=== PATIENT | female | born 1940 | race African-American/Black ===

== ENCOUNTER 2019-03-19 18:42 | Inpatient (IN) | payer MEDICARE, MEDICAID ==
[~2019-03-19] VITALS: Ht 160 cm; Wt 75.4 kg
[2019-03-19] MEDS ORDERED: SODIUM CHLORIDE 0.9% 1,000 ML IV ONE (20:10)
[2019-03-19] MEDS ORDERED: ONDANSETRON HCL 4MG/2ML INJ IV STA (20:10)
[2019-03-19 20:43] LABS: HEMATOCRIT. 31.8 % (36.0-48.0); HEMOGLOBIN. 10.3 g/dL (12.0-16.0); MEAN CORPUSCULAR HEMOGLOBIN 27.9 pg (28.0-32.0); MEAN CORPUSCULAR VOLUME 86.5 fL (81.0-99.0); MEAN PLATELET VOLUME 7.1 fl (7.4-10.4); PLATELET 398 x1000/uL (130-400); RED BLOOD CELL COUNT 3.68 mill/uL (4.2-5.4); RED CELL DISTRIBUTION WIDTH 17.3 % (11.6-14.6)
[2019-03-19] MEDS ORDERED: CEFTRIAXONE 1 G PREMIX 50 ML IV ONE (20:45)
[2019-03-19] MEDS ORDERED: SODIUM CHLORIDE 0.9% 1000ML BAG (SEPSIS BOLUS) IV ONE (20:45)
[2019-03-19 20:49] LABS: CHLORIDE 91 mEq/L (98-107)
[2019-03-19 21:07] LABS: NUCLEATED RED BLOOD CELLS 2 /100 WBC; PLATELET ESTIMATE NORMAL
[2019-03-19] MEDS ORDERED: FUROSEMIDE 20MG/2ML VIAL IVP NR (23:45)
[2019-03-19 23:46] LABS: CLARITY URINE CLOUDY (CLEAR); COLOR URINE YELLOW (YELLOW); KETONES URINE NEGATIVE (NEGATIVE); LEUKOCYTE ESTERASE URINE TRACE (NEGATIVE); NITRITE URINE NEGATIVE (NEGATIVE); OCCULT BLOOD URINE NEGATIVE (NEGATIVE); PROTEIN URINE 1+ (NEGATIVE); SPECIFIC GRAVITY URINE 1.014 (1.005-1.030)
[2019-03-20] VITALS (17 sets, daily range): BP systolic 102–131; BP diastolic 57–84
[2019-03-20] MEDS ORDERED: ASPIRIN 325MG EC TABLET PO NR (00:15)
[2019-03-20] MEDS ORDERED: FUROSEMIDE 40MG/4ML VIAL IV NR (03:00)
[2019-03-20] MEDS ORDERED: DIGOXIN 500MCG/2ML AMP IV NR (03:00)
[2019-03-20] MEDS: DEXT 5%/0.45% NACL 1000ML 1,000 ML IV SCH ×2 (03:36→09:10)
[2019-03-20] MEDS: INSULIN LISPRO 100 UNITS/ML SUBCUT SCH ×5 (06:00→23:51)
[2019-03-20 07:10] LABS: CHLORIDE 94 mEq/L (98-107)
[2019-03-20] MEDS ORDERED: ATOR10TA69 PO (07:27)
[2019-03-20] MEDS ORDERED: OMEP40CA34 PO (07:27)
[2019-03-20] MEDS ORDERED: APIX5TAB PO (07:27)
[2019-03-20] MEDS ORDERED: NAPR-679 PO (07:27)
[2019-03-20] MEDS ORDERED: SITA25TA3 PO (07:27)
[2019-03-20] MEDS ORDERED: VALS40TA11 PO (07:27)
[2019-03-20] MEDS ORDERED: METH2.5T PO (07:27)
[2019-03-20] MEDS ORDERED: HYDR200T35 PO (07:27)
[2019-03-20] MEDS ORDERED: FURO20TA4 PO (07:27)
[2019-03-20 07:32] LABS: DIGOXIN 2.1 ng/mL (0.9-2.0)
[2019-03-20] MEDS ORDERED: DIGOXIN 500MCG/2ML AMP IV SCH (08:15)
[2019-03-20] MEDS: FUROSEMIDE 40MG/4ML VIAL IVP SCH ×2 (08:56→22:19)
[2019-03-20] MEDS ORDERED: POTASSIUM CHLORIDE 20MEQ TABLET SR PO SCH (09:00)
[2019-03-20] MEDS: DIGOXIN 500MCG/2ML AMP IV SCH (16:10)
[2019-03-20] MEDS: METOPROLOL TARTRATE 50MG TABLET PO SCH ×2 (16:59→21:00)
[2019-03-20] MEDS ORDERED: AMIODARONE HCL 900 MG in DEXT 5% WATER 482 ML IV PRN (21:15)
[2019-03-20] MEDS ORDERED: AMIODARONE HCL 150 MG in DEXT 5% WATER 100 ML IV NR (21:30)
[2019-03-20] MEDS: ONDANSETRON HCL 4MG/2ML INJ IV PRN (22:20)
[2019-03-20] MEDS: BLOOD SUGAR DIAGNOSTIC STRIP TEST SCH (23:31)
[2019-03-21] VITALS (12 sets, daily range): BP systolic 101–154; BP diastolic 48–77
[2019-03-21] MEDS ORDERED: DEXTROSE 50% WATER 50ML SYRINGE IV PRN
[2019-03-21 00:04] LABS: T4 FREE 1.64 ng/dL (0.76-1.46)
[2019-03-21] MEDS: APIXABAN 5 MG TABLET PO SCH ×2 (05:29→17:02)
[2019-03-21] MEDS: ONDANSETRON HCL 4MG/2ML INJ IV PRN ×3 (05:29→13:08)
[2019-03-21] MEDS: DIGOXIN 500MCG/2ML AMP IV SCH ×2 (05:30→17:02)
[2019-03-21] MEDS: BLOOD SUGAR DIAGNOSTIC STRIP TEST SCH ×3 (05:35→18:13)
[2019-03-21] MEDS: INSULIN LISPRO 100 UNITS/ML SUBCUT SCH ×3 (05:35→18:00)
[2019-03-21 07:06] LABS: BASOPHILS % 1.6 % (0.0-2.0); EOSINOPHILS % 0.5 % (0.0-5.0); HEMATOCRIT. 33.8 % (36.0-48.0); HEMOGLOBIN. 10.7 g/dL (12.0-16.0); LYMPHOCYTES % 17.6 % (20.0-50.0); MEAN CORPUSCULAR HEMOGLOBIN 27.5 pg (28.0-32.0); MEAN CORPUSCULAR VOLUME 86.5 fL (81.0-99.0); MEAN PLATELET VOLUME 7.5 fl (7.4-10.4); MONOCYTES % 10.3 % (2.0-8.0); PLATELET 391 x1000/uL (130-400); RED CELL DISTRIBUTION WIDTH 17.1 % (11.6-14.6)
[2019-03-21] MEDS: FUROSEMIDE 40MG/4ML VIAL IVP SCH ×2 (08:20→22:55)
[2019-03-21] MEDS: METOPROLOL TARTRATE 50MG TABLET PO SCH ×2 (08:21→22:56)
[2019-03-21 09:20] LABS: DIGOXIN 2.6 ng/mL (0.9-2.0)
[2019-03-21 14:53] LABS: CREATINE KINASE MB FRACTION 2.4 ng/mL (0.5-3.6)
[2019-03-21] MEDS ORDERED: MAGNESIUM SULFATE 1GM/2ML VIAL IM ONE (21:15)
[2019-03-21] MEDS: ALLOPURINOL 100 MG TABLET PO SCH (23:04)
[2019-03-21] MEDS: SODIUM CHLORIDE 0.9% 1,000 ML IV SCH (23:07)
[2019-03-22] VITALS (12 sets, daily range): BP systolic 100–138; BP diastolic 50–74
[2019-03-22] MEDS ORDERED: MAGNESIUM 2 G PREMIX 50 ML IV NR
[2019-03-22] MEDS: BLOOD SUGAR DIAGNOSTIC STRIP TEST SCH ×4 (00:50→16:48)
[2019-03-22] MEDS: INSULIN LISPRO 100 UNITS/ML SUBCUT SCH ×4 (00:55→16:49)
[2019-03-22] MEDS: DIGOXIN 500MCG/2ML AMP IV SCH (06:44)
[2019-03-22] MEDS: APIXABAN 5 MG TABLET PO SCH ×2 (06:44→17:37)
[2019-03-22 07:27] LABS: BASOPHILS % 0.6 % (0.0-2.0); EOSINOPHILS % 0.7 % (0.0-5.0); HEMATOCRIT. 32.8 % (36.0-48.0); HEMOGLOBIN. 10.6 g/dL (12.0-16.0); LYMPHOCYTES % 13.7 % (20.0-50.0); MEAN CORPUSCULAR HEMOGLOBIN 27.9 pg (28.0-32.0); MEAN CORPUSCULAR VOLUME 85.9 fL (81.0-99.0); MEAN PLATELET VOLUME 7.6 fl (7.4-10.4); MONOCYTES % 12.2 % (2.0-8.0); NEUTROPHILS % 72.8 % (40.0-76.0); PLATELET 379 x1000/uL (130-400); RED BLOOD CELL COUNT 3.81 mill/uL (4.2-5.4); RED CELL DISTRIBUTION WIDTH 17.4 % (11.6-14.6)
[2019-03-22] MEDS: FUROSEMIDE 40MG/4ML VIAL IVP SCH ×2 (08:28→20:54)
[2019-03-22] MEDS: DOCUSATE SODIUM 100MG CAPSULE PO PRN (08:29)
[2019-03-22] MEDS: METOPROLOL TARTRATE 50MG TABLET PO SCH ×2 (08:29→20:54)
[2019-03-22] MEDS: ALLOPURINOL 100 MG TABLET PO SCH ×2 (08:29→16:12)
[2019-03-22] MEDS ORDERED: LIDOCAINE HCL 1% 20ML VIAL (Pyxis) INJ ONE (12:10)
[2019-03-22] MEDS: ONDANSETRON HCL 4MG/2ML INJ IV PRN ×2 (16:41→21:52)
[2019-03-22] MEDS: SODIUM CHLORIDE 1000MG TABLET PO SCH (17:29)
[2019-03-22] MEDS: SODIUM CHLORIDE 0.9% 1,000 ML IV SCH (21:51)
[2019-03-22] MEDS: MAGNESIUM/ALUMINUM HYDROXIDE/SIMETHICONE 30ML UDC PO PRN (23:06)
[2019-03-23] VITALS (12 sets, daily range): BP systolic 100–138; BP diastolic 46–63
[2019-03-23] MEDS: BLOOD SUGAR DIAGNOSTIC STRIP TEST SCH ×4 (00:26→17:23)
[2019-03-23] MEDS: INSULIN LISPRO 100 UNITS/ML SUBCUT SCH ×4 (06:00→17:23)
[2019-03-23] MEDS: APIXABAN 5 MG TABLET PO SCH ×3 (06:00→17:23)
[2019-03-23] MEDS: FUROSEMIDE 40MG/4ML VIAL IVP SCH ×2 (08:47→21:42)
[2019-03-23] MEDS: ONDANSETRON HCL 4MG/2ML INJ IV PRN ×2 (08:47→13:09)
[2019-03-23] MEDS: ACETAMINOPHEN 325MG TABLET PO PRN ×2 (08:47→13:09)
[2019-03-23] MEDS: METOPROLOL TARTRATE 50MG TABLET PO SCH ×2 (08:48→21:42)
[2019-03-23] MEDS: ALLOPURINOL 100 MG TABLET PO SCH ×2 (08:48→17:23)
[2019-03-23] MEDS: SODIUM CHLORIDE 1000MG TABLET PO SCH (09:15)
[2019-03-23] MEDS: MAGNESIUM/ALUMINUM HYDROXIDE/SIMETHICONE 30ML UDC PO PRN (11:09)
[2019-03-23] MEDS ORDERED: SODIUM CHLORIDE 3% 500 ML IV ONE ×2 (11:30)
[2019-03-23] MEDS ORDERED: SODIUM CHLORIDE 3% 500 ML IV SCH (13:00)
[2019-03-23] MEDS: SODIUM CHLORIDE 0.9% 1,000 ML IV SCH (21:26)
[2019-03-23] MEDS ORDERED: SODIUM CHLORIDE 3% 500ML IV SOLN IV ONE (23:45)
[2019-03-24] VITALS (13 sets, daily range): BP systolic 114–147; BP diastolic 49–70
[2019-03-24] MEDS: BLOOD SUGAR DIAGNOSTIC STRIP TEST SCH ×5 (00:14→23:40)
[2019-03-24] MEDS ORDERED: SODIUM CHLORIDE 3% 500 ML IV NR (05:00)
[2019-03-24] MEDS: INSULIN LISPRO 100 UNITS/ML SUBCUT SCH ×5 (06:00→23:41)
[2019-03-24 06:10] LABS: BASOPHILS % 0.3 % (0.0-2.0); EOSINOPHILS % 0.4 % (0.0-5.0); HEMATOCRIT. 35.6 % (36.0-48.0); HEMOGLOBIN. 11.6 g/dL (12.0-16.0); LYMPHOCYTES % 15.9 % (20.0-50.0); MEAN CORPUSCULAR VOLUME 86.3 fL (81.0-99.0); MEAN PLATELET VOLUME 7.2 fl (7.4-10.4); MONOCYTES % 12.5 % (2.0-8.0); NEUTROPHILS % 70.9 % (40.0-76.0); PLATELET 361 x1000/uL (130-400); RED BLOOD CELL COUNT 4.13 mill/uL (4.2-5.4); RED CELL DISTRIBUTION WIDTH 18.1 % (11.6-14.6)
[2019-03-24] MEDS: APIXABAN 5 MG TABLET PO SCH ×2 (06:32→18:15)
[2019-03-24] MEDS: SODIUM CHLORIDE 1000MG TABLET PO SCH (09:09)
[2019-03-24] MEDS: ALLOPURINOL 100 MG TABLET PO SCH ×2 (09:11→18:15)
[2019-03-24] MEDS: FUROSEMIDE 40MG/4ML VIAL IVP SCH ×2 (09:13→21:17)
[2019-03-24] MEDS: METOPROLOL TARTRATE 50MG TABLET PO SCH ×2 (09:18→21:18)
[2019-03-24 09:59] LABS: BG BASE EXCESS 0.1 mmol/L (-2.0-2.0); BG CARBOXYHEMOGLOBIN 1.2 % (0.5-1.5); BG DEOXYHEMOGLOBIN 9.6 % (0.0-5.0); BG FRACTION INSPIRED OXYGEN 21; BG HCO3 ACT 26.9 mmol/L (22.0-26.0); BG METHEMOGLOBIN 0.2 % (0.0-1.5); BG OXYGEN SATURATION 90.3 % (92.0-98.5); BG PCO2 52.8 mmHg (35.0-45.0); BG PH 7.325 (7.350-7.450); BG PO2 64.6 mmHg (75.0-100.0); BG SAMPLE SITE RIGHT BRACHIAL; BG TOTAL HEMOGLOBIN 12.8 g/dL (12.0-18.0); BG VENT MODE ROOM AIR
[2019-03-24] MEDS: IPRATROPIUM/ALBUTEROL 0.5-3(2.5)MG/3ML NEB HHN SCH (20:35)
[2019-03-24] MEDS ORDERED: SODIUM CHLORIDE 0.9% 1,000 ML IV SCH (21:00)
[2019-03-24] MEDS: SODIUM CHLORIDE 0.45% 1,000 ML IV SCH (22:52)
[2019-03-25] VITALS (14 sets, daily range): BP systolic 122–148; BP diastolic 52–78
[2019-03-25] MEDS: IPRATROPIUM/ALBUTEROL 0.5-3(2.5)MG/3ML NEB HHN SCH ×4 (01:01→20:56)
[2019-03-25] MEDS: INSULIN LISPRO 100 UNITS/ML SUBCUT SCH ×3 (06:00→17:17)
[2019-03-25] MEDS: BLOOD SUGAR DIAGNOSTIC STRIP TEST SCH ×3 (06:35→17:10)
[2019-03-25] MEDS: APIXABAN 5 MG TABLET PO SCH ×2 (06:36→17:17)
[2019-03-25 06:37] LABS: BASOPHILS % 0.1 % (0.0-2.0); EOSINOPHILS % 1.3 % (0.0-5.0); HEMATOCRIT. 39.6 % (36.0-48.0); HEMOGLOBIN. 12.5 g/dL (12.0-16.0); LYMPHOCYTES % 10.9 % (20.0-50.0); MEAN CORPUSCULAR HEMOGLOBIN 27.8 pg (28.0-32.0); MEAN CORPUSCULAR VOLUME 88.1 fL (81.0-99.0); MEAN PLATELET VOLUME 7.7 fl (7.4-10.4); MONOCYTES % 14.7 % (2.0-8.0); PLATELET 292 x1000/uL (130-400); RED CELL DISTRIBUTION WIDTH 17.7 % (11.6-14.6)
[2019-03-25 07:33] LABS: BG BASE EXCESS 1.1 mmol/L (-2.0-2.0); BG CARBOXYHEMOGLOBIN 0.9 % (0.5-1.5); BG METHEMOGLOBIN 0.3 % (0.0-1.5); BG OXYGEN SATURATION 94.9 % (92.0-98.5); BG OXYHEMOGLOBIN 93.8 % (94.0-97.0); BG PCO2 54.8 mmHg (35.0-45.0); BG PH 7.327 (7.350-7.450); BG PO2 81.5 mmHg (75.0-100.0); BG SAMPLE SITE RIGHT BRACHIAL; BG TOTAL HEMOGLOBIN 12.9 g/dL (12.0-18.0); BG VENT MODE NASAL CANNULA
[2019-03-25] MEDS: METOPROLOL TARTRATE 50MG TABLET PO SCH ×2 (09:51→21:23)
[2019-03-25] MEDS: FUROSEMIDE 40MG/4ML VIAL IVP SCH ×2 (09:51→21:24)
[2019-03-25] MEDS: ALLOPURINOL 100 MG TABLET PO SCH ×2 (09:51→17:17)
[2019-03-25] MEDS ORDERED: METHYLPREDNISOLONE SOD SUCC 40 MG/ML VIAL IV NR (17:00)
[2019-03-25] MEDS: SODIUM CHLORIDE 0.45% 1,000 ML IV SCH (20:21)
[2019-03-26] VITALS (13 sets, daily range): BP systolic 117–155; BP diastolic 52–78
[2019-03-26] MEDS: BLOOD SUGAR DIAGNOSTIC STRIP TEST SCH ×3 (00:15→12:07)
[2019-03-26] MEDS: IPRATROPIUM/ALBUTEROL 0.5-3(2.5)MG/3ML NEB HHN SCH ×3 (02:00→13:53)
[2019-03-26] MEDS: APIXABAN 5 MG TABLET PO SCH (05:45)
[2019-03-26] MEDS: DOCUSATE SODIUM 100MG CAPSULE PO PRN (05:45)
[2019-03-26 06:57] LABS: BASOPHILS % 0.1 % (0.0-2.0); EOSINOPHILS % 0.1 % (0.0-5.0); HEMATOCRIT. 43.4 % (36.0-48.0); HEMOGLOBIN. 13.2 g/dL (12.0-16.0); LYMPHOCYTES % 11.6 % (20.0-50.0); MEAN CORPUSCULAR HEMOGLOBIN 27.1 pg (28.0-32.0); MEAN PLATELET VOLUME 7.5 fl (7.4-10.4); MONOCYTES % 5.3 % (2.0-8.0); NEUTROPHILS % 82.9 % (40.0-76.0); PLATELET 299 x1000/uL (130-400); RED BLOOD CELL COUNT 4.87 mill/uL (4.2-5.4); RED CELL DISTRIBUTION WIDTH 18.3 % (11.6-14.6)
[2019-03-26] MEDS ORDERED: METHYLPREDNISOLONE SOD SUCC 40 MG/ML VIAL IV SCH (09:00)
[2019-03-26] MEDS: FUROSEMIDE 40MG/4ML VIAL IVP SCH (09:05)
[2019-03-26] MEDS: METOPROLOL TARTRATE 50MG TABLET PO SCH (09:05)
[2019-03-26] MEDS: ALLOPURINOL 100 MG TABLET PO SCH (09:05)
[2019-03-26] MEDS: INSULIN LISPRO 100 UNITS/ML SUBCUT SCH ×3 (09:06→12:00)
[2019-03-26] MEDS: SODIUM CHLORIDE 0.45% 1,000 ML IV SCH (10:21)
== END 2019-03-26 16:51 | DRG 871 ==
LOC: ER 18:42 → 3WST 23:58 → EDBEDREQTM 03-20 00:14 → EDBEDREQ 03-20 00:14 → ENRESERV 03-20 02:53
PROVIDERS: ADMIT Internal Medicine Rheumatology; ATTEND Internal Medicine Rheumatology
PROC: B54MZZA Ultrasonography of Right Upper Extremity Veins, Guidance (ICD-10-PCS; principal; 2019-03-22)
PROC: 02H633Z Insertion of Infusion Device into Right Atrium, Percutaneous Approach (ICD-10-PCS; 2019-03-22)
DX: A41.9 Sepsis, unspecified organism (principal); E43 Unspecified severe protein-calorie malnutrition; J96.20 Acute and chronic respiratory failure, unspecified whether with hypoxia or hypercapnia; J18.9 Pneumonia, unspecified organism; E87.1 Hypo-osmolality and hyponatremia; I50.32 Chronic diastolic (congestive) heart failure; E87.2 Acidosis; I48.92 Unspecified atrial flutter; N17.9 Acute kidney failure, unspecified; I48.0 Paroxysmal atrial fibrillation; I11.0 Hypertensive heart disease with heart failure; M06.9 Rheumatoid arthritis, unspecified; N18.3 Chronic kidney disease, stage 3 (moderate); E78.5 Hyperlipidemia, unspecified; E87.6 Hypokalemia; D64.9 Anemia, unspecified; E11.51 Type 2 diabetes mellitus with diabetic peripheral angiopathy without gangrene; Z96.659 Presence of unspecified artificial knee joint; Z96.653 Presence of artificial knee joint, bilateral; R26.9 Unspecified abnormalities of gait and mobility; E78.00 Pure hypercholesterolemia, unspecified; E87.5 Hyperkalemia; I65.29 Occlusion and stenosis of unspecified carotid artery; T46.0X5A Adverse effect of cardiac-stimulant glycosides and drugs of similar action, initial encounter; Y92.89 Other specified places as the place of occurrence of the external cause; Z82.3 Family history of stroke; Z82.49 Family history of ischemic heart disease and other diseases of the circulatory system; Z79.01 Long term (current) use of anticoagulants; Z79.899 Other long term (current) drug therapy; Z88.1 Allergy status to other antibiotic agents; Z88.8 Allergy status to other drugs, medicaments and biological substances; Z82.61 Family history of arthritis; Z68.29 Body mass index [BMI] 29.0-29.9, adult
CPT/HCPCS: 36415; 36569; 36600; 71045; 76937; 80048; 80051; 80162; 82310; 82375; 82550; 82553; 82805; 82962; 83036; 83605; 83735; 83880; 83930; 83935; 84133; 84145; 84300; 84439; 84443; 84484; 84550; 92523; 92610; 93005; 93306; 94640; 96365; 96375; 97110; 97140; 97162; 97166; 97530; 97535; 99291; C1725; C1893; J0282; J0696; J1160; J1815; J1940; J2405; J2920; J3475; J3490; J7030; J7060; J7620

== ENCOUNTER 2019-03-26 17:00 | Inpatient (IN) | payer MEDICARE, MEDICAID ==
[~2019-03-26] VITALS: Ht 160 cm; Wt 75.3 kg
[~2019-03-26 17:00] MED LIST: APIX5TAB PO; ATOR10TA69 PO; FURO20TA4 PO; HYDR200T35 PO; METH2.5T PO; NAPR-679 PO; OMEP40CA34 PO; SITA25TA3 PO; VALS40TA11 PO
[2019-03-26] MEDS ORDERED: ONDANSETRON HCL 4MG TABLET PO PRN (18:15)
[2019-03-26] MEDS ORDERED: DEXTROSE 50% WATER 50ML SYRINGE IV PRN ×2 (18:15→19:15)
[2019-03-26 20:00] VITALS: BP 144/63
[2019-03-26] MEDS: METOPROLOL TARTRATE 50MG TABLET PO SCH (21:00)
[2019-03-26] MEDS ORDERED: BLOOD SUGAR DIAGNOSTIC STRIP TEST SCH (21:00)
[2019-03-26] MEDS: BLOOD SUGAR DIAGNOSTIC STRIP TEST SCH (21:00)
[2019-03-26] MEDS ORDERED: INSULIN LISPRO 100 UNITS/ML SUBCUT SCH (21:00)
[2019-03-26] MEDS ORDERED: SODIUM CHLORIDE 0.45% 1,000 ML IV SCH (22:00)
[2019-03-26] MEDS: POTASSIUM CHLORIDE 20MEQ TABLET SR PO SCH (23:08)
[2019-03-26] MEDS: APIXABAN 5 MG TABLET PO SCH (23:08)
[2019-03-26] MEDS: ACETAMINOPHEN 325MG TABLET PO PRN (23:19)
[2019-03-26] MEDS: INSULIN LISPRO 100 UNITS/ML SUBCUT SCH (23:52)
[2019-03-27] MEDS: ACETAMINOPHEN 325MG TABLET PO PRN (00:19)
[2019-03-27] MEDS: IPRATROPIUM/ALBUTEROL 0.5-3(2.5)MG/3ML NEB HHN SCH ×4 (04:38→21:01)
[2019-03-27] MEDS: INSULIN LISPRO 100 UNITS/ML SUBCUT SCH ×4 (06:46→21:30)
[2019-03-27 06:48] LABS: BASOPHILS % 0.6 % (0.0-2.0); HEMOGLOBIN. 10.9 g/dL (12.0-16.0); LYMPHOCYTES % 9.8 % (20.0-50.0); MEAN CORPUSCULAR HEMOGLOBIN 27.7 pg (28.0-32.0); MEAN CORPUSCULAR VOLUME 86.6 fL (81.0-99.0); MEAN PLATELET VOLUME 7.5 fl (7.4-10.4); MONOCYTES % 7.6 % (2.0-8.0); PLATELET 279 x1000/uL (130-400); RED BLOOD CELL COUNT 3.93 mill/uL (4.2-5.4); RED CELL DISTRIBUTION WIDTH 18.2 % (11.6-14.6)
[2019-03-27] MEDS: BLOOD SUGAR DIAGNOSTIC STRIP TEST SCH ×4 (06:53→21:31)
[2019-03-27] MEDS ORDERED: INSULIN LISPRO 100 UNITS/ML SUBCUT SCH (07:00)
[2019-03-27 07:22] LABS: CHLORIDE 95 mEq/L (98-107)
[2019-03-27 07:42] LABS: T4 FREE 1.13 ng/dL (0.76-1.46)
[2019-03-27 08:00] VITALS: BP 137/65
[2019-03-27] MEDS: POTASSIUM CHLORIDE 20MEQ TABLET SR PO SCH (08:41)
[2019-03-27] MEDS: ALLOPURINOL 100 MG TABLET PO SCH ×2 (08:41→16:27)
[2019-03-27] MEDS: PREDNISONE 10MG TABLET PO SCH ×2 (08:41→16:27)
[2019-03-27] MEDS: METOPROLOL TARTRATE 50MG TABLET PO SCH ×2 (08:42→21:22)
[2019-03-27] MEDS: APIXABAN 5 MG TABLET PO SCH ×2 (08:42→21:22)
[2019-03-27] MEDS: DOCUSATE SODIUM 100MG CAPSULE PO SCH ×2 (08:42→16:27)
[2019-03-27] MEDS: FUROSEMIDE 40MG TABLET PO SCH (08:42)
[2019-03-27] MEDS ORDERED: METHYLPREDNISOLONE 4MG TABLET PO SCH (09:00)
[2019-03-27] MEDS: LACTULOSE 20G/30ML UDC PO SCH ×2 (18:01→21:22)
[2019-03-27 20:00] VITALS: BP 137/63
[2019-03-27 20:11] LABS: CLARITY URINE CLEAR (CLEAR); COLOR URINE YELLOW (YELLOW); KETONES URINE NEGATIVE (NEGATIVE); LEUKOCYTE ESTERASE URINE NEGATIVE (NEGATIVE); NITRITE URINE NEGATIVE (NEGATIVE); OCCULT BLOOD URINE NEGATIVE (NEGATIVE); PROTEIN URINE NEGATIVE (NEGATIVE); SPECIFIC GRAVITY URINE 1.009 (1.005-1.030); UROBILINOGEN URINE 0.2 E.U./dL (0.2-1.0)
[2019-03-27] MEDS: POLYETHYLENE GLYCOL 3350 (17GM) 1 DOSE PACK PO SCH (21:22)
[2019-03-28] MEDS: MAGNESIUM/ALUMINUM HYDROXIDE/SIMETHICONE 30ML UDC PO PRN (01:37)
[2019-03-28] MEDS: IPRATROPIUM/ALBUTEROL 0.5-3(2.5)MG/3ML NEB HHN SCH ×4 (02:28→20:55)
[2019-03-28] MEDS: BLOOD SUGAR DIAGNOSTIC STRIP TEST SCH ×4 (06:40→20:36)
[2019-03-28] MEDS: INSULIN LISPRO 100 UNITS/ML SUBCUT SCH ×4 (06:42→22:15)
[2019-03-28 07:47] LABS: BASOPHILS % 0.3 % (0.0-2.0); EOSINOPHILS % 0.1 % (0.0-5.0); HEMATOCRIT. 33.3 % (36.0-48.0); HEMOGLOBIN. 10.6 g/dL (12.0-16.0); LYMPHOCYTES % 10.5 % (20.0-50.0); MEAN CORPUSCULAR HEMOGLOBIN 27.6 pg (28.0-32.0); MEAN CORPUSCULAR VOLUME 86.6 fL (81.0-99.0); MEAN PLATELET VOLUME 7.6 fl (7.4-10.4); NEUTROPHILS % 80.1 % (40.0-76.0); PLATELET 287 x1000/uL (130-400); RED BLOOD CELL COUNT 3.84 mill/uL (4.2-5.4)
[2019-03-28 08:00] VITALS: BP 106/58
[2019-03-28 08:21] LABS: FERRITIN 105 ng/mL (10-291)
[2019-03-28 09:00] LABS: CHLORIDE 94 mEq/L (98-107)
[2019-03-28] MEDS: LACTULOSE 20G/30ML UDC PO SCH ×2 (09:00→12:14)
[2019-03-28] MEDS: DOCUSATE SODIUM 100MG CAPSULE PO SCH ×2 (09:00→16:54)
[2019-03-28] MEDS: METOPROLOL TARTRATE 50MG TABLET PO SCH ×2 (09:00→20:34)
[2019-03-28 09:12] LABS: PHOSPHORUS 3.1 mg/dL (2.5-4.9)
[2019-03-28 09:13] LABS: TOTAL IRON BINDING CAPACITY 335 ug/dL (250-450)
[2019-03-28] MEDS: ALLOPURINOL 100 MG TABLET PO SCH ×2 (09:29→16:54)
[2019-03-28] MEDS: FUROSEMIDE 40MG TABLET PO SCH (09:29)
[2019-03-28] MEDS: PREDNISONE 10MG TABLET PO SCH ×2 (09:29→16:54)
[2019-03-28] MEDS: APIXABAN 5 MG TABLET PO SCH ×2 (09:29→20:33)
[2019-03-28 10:58] LABS: VITAMIN B12 SERUM > 2000.0 pg/mL (211-911)
[2019-03-28 20:00] VITALS: BP 121/46
[2019-03-28] MEDS: POLYETHYLENE GLYCOL 3350 (17GM) 1 DOSE PACK PO SCH (20:34)
[2019-03-29] MEDS: IPRATROPIUM/ALBUTEROL 0.5-3(2.5)MG/3ML NEB HHN SCH ×4 (01:00→20:06)
[2019-03-29] MEDS: BLOOD SUGAR DIAGNOSTIC STRIP TEST SCH ×4 (05:37→20:31)
[2019-03-29] MEDS: GLYBURIDE 2.5MG TABLET PO SCH (06:15)
[2019-03-29] MEDS: INSULIN LISPRO 100 UNITS/ML SUBCUT SCH ×4 (06:17→20:55)
[2019-03-29 07:06] LABS: BASOPHILS % 0.5 % (0.0-2.0); EOSINOPHILS % 0.4 % (0.0-5.0); HEMOGLOBIN. 11.4 g/dL (12.0-16.0); LYMPHOCYTES % 13.9 % (20.0-50.0); MEAN CORPUSCULAR HEMOGLOBIN 27.4 pg (28.0-32.0); MEAN CORPUSCULAR VOLUME 86.3 fL (81.0-99.0); MEAN PLATELET VOLUME 7.7 fl (7.4-10.4); MONOCYTES % 9.4 % (2.0-8.0); NEUTROPHILS % 75.8 % (40.0-76.0); PLATELET 260 x1000/uL (130-400); RED BLOOD CELL COUNT 4.16 mill/uL (4.2-5.4); RED CELL DISTRIBUTION WIDTH 18.1 % (11.6-14.6)
[2019-03-29 07:32] LABS: CHLORIDE 93 mEq/L (98-107)
[2019-03-29 07:41] LABS: CREATINE KINASE 33 IU/L (26-192)
[2019-03-29 08:07] VITALS: BP 132/74
[2019-03-29] MEDS: PREDNISONE 10MG TABLET PO SCH ×2 (08:55→17:14)
[2019-03-29] MEDS: METFORMIN HCL 500MG TABLET PO SCH ×2 (08:55→17:14)
[2019-03-29] MEDS: METOPROLOL TARTRATE 50MG TABLET PO SCH ×2 (08:55→20:30)
[2019-03-29] MEDS: APIXABAN 5 MG TABLET PO SCH ×2 (08:55→20:30)
[2019-03-29] MEDS: DOCUSATE SODIUM 100MG CAPSULE PO SCH ×2 (08:55→17:14)
[2019-03-29] MEDS: ALLOPURINOL 100 MG TABLET PO SCH ×2 (08:55→17:14)
[2019-03-29] MEDS ORDERED: LEVOFLOXACIN 500MG TABLET PO NR (13:15)
[2019-03-29] MEDS ORDERED: NON FORMULARY PATIENT HOME MED XX SCH (17:00)
[2019-03-29 20:00] VITALS: BP 126/64
[2019-03-29] MEDS: POLYETHYLENE GLYCOL 3350 (17GM) 1 DOSE PACK PO SCH (20:30)
[2019-03-29] MEDS ORDERED: ATOR10TA69 MT (21:45)
[2019-03-29] MEDS ORDERED: NAPR-679 MT (21:45)
[2019-03-30 02:18] VITALS: BP 146/90
[2019-03-30] MEDS: MAGNESIUM/ALUMINUM HYDROXIDE/SIMETHICONE 30ML UDC PO PRN (02:18)
[2019-03-30] MEDS: IPRATROPIUM/ALBUTEROL 0.5-3(2.5)MG/3ML NEB HHN SCH ×4 (02:19→19:49)
[2019-03-30 02:45] VITALS: BP 152/70
[2019-03-30 03:32] VITALS: BP 135/76
[2019-03-30] MEDS: BLOOD SUGAR DIAGNOSTIC STRIP TEST SCH ×4 (06:27→21:00)
[2019-03-30] MEDS: GLYBURIDE 2.5MG TABLET PO SCH (06:27)
[2019-03-30] MEDS: INSULIN LISPRO 100 UNITS/ML SUBCUT SCH ×4 (06:35→21:00)
[2019-03-30 07:04] LABS: CHLORIDE 91 mEq/L (98-107)
[2019-03-30 08:08] VITALS: BP 140/77
[2019-03-30] MEDS: METFORMIN HCL 500MG TABLET PO SCH ×2 (08:30→17:00)
[2019-03-30] MEDS: DOCUSATE SODIUM 100MG CAPSULE PO SCH ×2 (08:30→17:00)
[2019-03-30] MEDS: FUROSEMIDE 40MG TABLET PO SCH (08:31)
[2019-03-30] MEDS: PREDNISONE 10MG TABLET PO SCH ×2 (08:31→17:00)
[2019-03-30] MEDS: ALLOPURINOL 100 MG TABLET PO SCH ×2 (08:31→17:00)
[2019-03-30] MEDS: APIXABAN 5 MG TABLET PO SCH ×2 (08:31→22:00)
[2019-03-30] MEDS: METOPROLOL TARTRATE 50MG TABLET PO SCH ×2 (08:31→22:00)
[2019-03-30] MEDS: LEVOFLOXACIN 250MG TABLET PO SCH (10:21)
[2019-03-30] MEDS ORDERED: VISCOUS LIDOCAINE 2% 15 ML UDC PO PRN (17:45)
[2019-03-30 20:00] VITALS: BP 141/70
[2019-03-30] MEDS: POLYETHYLENE GLYCOL 3350 (17GM) 1 DOSE PACK PO SCH (21:00)
[2019-03-30] MEDS: OMEPRAZOLE 20MG CAPSULE EXTENDED RELEASE PO SCH (21:59)
[2019-03-31] MEDS: IPRATROPIUM/ALBUTEROL 0.5-3(2.5)MG/3ML NEB HHN SCH ×3 (01:30→21:28)
[2019-03-31] MEDS: BLOOD SUGAR DIAGNOSTIC STRIP TEST SCH ×4 (06:54→21:00)
[2019-03-31] MEDS: GLYBURIDE 2.5MG TABLET PO SCH (07:18)
[2019-03-31 07:40] LABS: BASOPHILS % 0.4 % (0.0-2.0); EOSINOPHILS % 0.4 % (0.0-5.0); HEMATOCRIT. 31.5 % (36.0-48.0); HEMOGLOBIN. 10.1 g/dL (12.0-16.0); LYMPHOCYTES % 10.3 % (20.0-50.0); MEAN CORPUSCULAR HEMOGLOBIN 27.6 pg (28.0-32.0); MEAN CORPUSCULAR VOLUME 85.6 fL (81.0-99.0); MEAN PLATELET VOLUME 8.1 fl (7.4-10.4); NEUTROPHILS % 79.9 % (40.0-76.0); PLATELET 261 x1000/uL (130-400); RED BLOOD CELL COUNT 3.68 mill/uL (4.2-5.4); RED CELL DISTRIBUTION WIDTH 17.8 % (11.6-14.6)
[2019-03-31 08:12] LABS: CHLORIDE 92 mEq/L (98-107)
[2019-03-31] MEDS: ALLOPURINOL 100 MG TABLET PO SCH ×2 (08:23→16:52)
[2019-03-31] MEDS: APIXABAN 5 MG TABLET PO SCH ×2 (08:23→22:22)
[2019-03-31] MEDS: OMEPRAZOLE 20MG CAPSULE EXTENDED RELEASE PO SCH (08:23)
[2019-03-31] MEDS: PREDNISONE 10MG TABLET PO SCH ×2 (08:23→16:52)
[2019-03-31] MEDS: DOCUSATE SODIUM 100MG CAPSULE PO SCH ×2 (08:23→16:52)
[2019-03-31] MEDS: METFORMIN HCL 500MG TABLET PO SCH ×2 (08:23→16:50)
[2019-03-31] MEDS: METOPROLOL TARTRATE 50MG TABLET PO SCH ×2 (08:24→22:23)
[2019-03-31] MEDS: INSULIN LISPRO 100 UNITS/ML SUBCUT SCH ×4 (08:25→21:00)
[2019-03-31 08:27] VITALS: BP 143/87
[2019-03-31] MEDS: LEVOFLOXACIN 250MG TABLET PO SCH (10:14)
[2019-03-31] MEDS: NYSTATIN 100,000 UNITS/ML 5ML UDC SSW SCH ×2 (11:53→17:00)
[2019-03-31 20:00] VITALS: BP 126/70
[2019-03-31] MEDS: POLYETHYLENE GLYCOL 3350 (17GM) 1 DOSE PACK PO SCH (21:00)
[2019-04-01] VITALS: BP 122/70
[2019-04-01] MEDS: NYSTATIN 100,000 UNITS/ML 5ML UDC SSW SCH ×4 (00:15→17:28)
[2019-04-01] MEDS: IPRATROPIUM/ALBUTEROL 0.5-3(2.5)MG/3ML NEB HHN SCH ×4 (01:14→20:02)
[2019-04-01] MEDS: BLOOD SUGAR DIAGNOSTIC STRIP TEST SCH ×4 (06:42→21:37)
[2019-04-01] MEDS: INSULIN LISPRO 100 UNITS/ML SUBCUT SCH ×4 (06:42→21:00)
[2019-04-01 08:20] VITALS: BP 139/79
[2019-04-01] MEDS: ALLOPURINOL 100 MG TABLET PO SCH ×2 (09:05→17:27)
[2019-04-01] MEDS: METFORMIN HCL 500MG TABLET PO SCH ×2 (09:05→17:27)
[2019-04-01] MEDS: PREDNISONE 10MG TABLET PO SCH ×2 (09:05→17:27)
[2019-04-01] MEDS: FAMOTIDINE 20MG TABLET PO SCH (09:05)
[2019-04-01] MEDS: APIXABAN 5 MG TABLET PO SCH ×2 (09:06→21:38)
[2019-04-01] MEDS: METOPROLOL TARTRATE 50MG TABLET PO SCH ×2 (09:06→21:00)
[2019-04-01] MEDS: DOCUSATE SODIUM 100MG CAPSULE PO SCH ×2 (09:06→17:27)
[2019-04-01] MEDS: FUROSEMIDE 40MG TABLET PO SCH (09:06)
[2019-04-01] MEDS: LEVOFLOXACIN 250MG TABLET PO SCH (11:37)
[2019-04-01 20:00] VITALS: BP 119/90
[2019-04-01] MEDS: POLYETHYLENE GLYCOL 3350 (17GM) 1 DOSE PACK PO SCH (21:00)
[2019-04-02] MEDS: NYSTATIN 100,000 UNITS/ML 5ML UDC SSW SCH ×4 (00:09→18:00)
[2019-04-02] MEDS: IPRATROPIUM/ALBUTEROL 0.5-3(2.5)MG/3ML NEB HHN SCH ×4 (00:23→21:35)
[2019-04-02] MEDS: BLOOD SUGAR DIAGNOSTIC STRIP TEST SCH ×4 (05:44→21:01)
[2019-04-02] MEDS: INSULIN LISPRO 100 UNITS/ML SUBCUT SCH ×4 (06:19→21:33)
[2019-04-02 07:03] LABS: BASOPHILS % 0.1 % (0.0-2.0); EOSINOPHILS % 0.3 % (0.0-5.0); HEMATOCRIT. 33.2 % (36.0-48.0); HEMOGLOBIN. 10.4 g/dL (12.0-16.0); LYMPHOCYTES % 8.8 % (20.0-50.0); MEAN CORPUSCULAR HEMOGLOBIN 26.7 pg (28.0-32.0); MEAN CORPUSCULAR VOLUME 85.7 fL (81.0-99.0); MEAN PLATELET VOLUME 8.4 fl (7.4-10.4); NEUTROPHILS % 82.8 % (40.0-76.0); PLATELET 266 x1000/uL (130-400); RED BLOOD CELL COUNT 3.87 mill/uL (4.2-5.4); RED CELL DISTRIBUTION WIDTH 18.1 % (11.6-14.6)
[2019-04-02 08:13] VITALS: BP 126/81
[2019-04-02 08:31] LABS: CHLORIDE 91 mEq/L (98-107)
[2019-04-02 08:44] LABS: PHOSPHORUS 3.8 mg/dL (2.5-4.9)
[2019-04-02] MEDS: FAMOTIDINE 20MG TABLET PO SCH (09:14)
[2019-04-02] MEDS: DOCUSATE SODIUM 100MG CAPSULE PO SCH ×2 (09:14→17:54)
[2019-04-02] MEDS: PREDNISONE 10MG TABLET PO SCH ×2 (09:14→17:54)
[2019-04-02] MEDS: METOPROLOL TARTRATE 50MG TABLET PO SCH ×2 (09:14→21:01)
[2019-04-02] MEDS: METFORMIN HCL 500MG TABLET PO SCH ×2 (09:14→17:53)
[2019-04-02] MEDS: APIXABAN 5 MG TABLET PO SCH ×2 (09:14→21:01)
[2019-04-02] MEDS: ALLOPURINOL 100 MG TABLET PO SCH ×2 (09:14→17:54)
[2019-04-02] MEDS: LEVOFLOXACIN 250MG TABLET PO SCH (11:41)
[2019-04-02 14:17] LABS: 25-HYDROXY VITAMIN D3 6.4 ng/mL (.)
[2019-04-02] MEDS: ACETAMINOPHEN 325MG TABLET PO PRN (14:42)
[2019-04-02 20:00] VITALS: BP 119/65
[2019-04-02] MEDS: POLYETHYLENE GLYCOL 3350 (17GM) 1 DOSE PACK PO SCH (21:00)
[2019-04-03] MEDS: NYSTATIN 100,000 UNITS/ML 5ML UDC SSW SCH ×5 (00:09→23:06)
[2019-04-03] MEDS: IPRATROPIUM/ALBUTEROL 0.5-3(2.5)MG/3ML NEB HHN SCH ×4 (02:27→21:16)
[2019-04-03] MEDS: BLOOD SUGAR DIAGNOSTIC STRIP TEST SCH ×4 (05:59→21:00)
[2019-04-03 06:00] VITALS: BP 127/65
[2019-04-03] MEDS: INSULIN LISPRO 100 UNITS/ML SUBCUT SCH ×4 (06:39→23:10)
[2019-04-03 07:59] VITALS: BP 116/69
[2019-04-03] MEDS: ALLOPURINOL 100 MG TABLET PO SCH ×2 (09:24→17:38)
[2019-04-03] MEDS: APIXABAN 5 MG TABLET PO SCH ×2 (09:24→22:41)
[2019-04-03] MEDS: PREDNISONE 10MG TABLET PO SCH ×2 (09:25→17:38)
[2019-04-03] MEDS: FAMOTIDINE 20MG TABLET PO SCH (09:25)
[2019-04-03] MEDS: METFORMIN HCL 500MG TABLET PO SCH ×2 (09:25→17:38)
[2019-04-03] MEDS: FUROSEMIDE 40MG TABLET PO SCH (09:25)
[2019-04-03] MEDS: DOCUSATE SODIUM 100MG CAPSULE PO SCH ×2 (09:25→17:38)
[2019-04-03] MEDS: METOPROLOL TARTRATE 50MG TABLET PO SCH ×2 (09:25→21:00)
[2019-04-03] MEDS: LEVOFLOXACIN 250MG TABLET PO SCH (12:33)
[2019-04-03 20:00] VITALS: BP 109/63
[2019-04-03] MEDS: POLYETHYLENE GLYCOL 3350 (17GM) 1 DOSE PACK PO SCH (22:42)
[2019-04-04] MEDS: IPRATROPIUM/ALBUTEROL 0.5-3(2.5)MG/3ML NEB HHN SCH ×4 (02:37→22:37)
[2019-04-04] MEDS: BLOOD SUGAR DIAGNOSTIC STRIP TEST SCH ×4 (06:30→21:20)
[2019-04-04] MEDS: NYSTATIN 100,000 UNITS/ML 5ML UDC SSW SCH ×3 (06:39→17:23)
[2019-04-04] MEDS: ACETAMINOPHEN 325MG TABLET PO PRN (06:40)
[2019-04-04 08:00] VITALS: BP 113/74
[2019-04-04 09:00] VITALS: BP 113/74
[2019-04-04] MEDS: INSULIN LISPRO 100 UNITS/ML SUBCUT SCH ×4 (09:00→21:21)
[2019-04-04] MEDS: METFORMIN HCL 500MG TABLET PO SCH ×2 (09:29→16:37)
[2019-04-04] MEDS: FAMOTIDINE 20MG TABLET PO SCH (09:29)
[2019-04-04] MEDS: ALLOPURINOL 100 MG TABLET PO SCH ×2 (09:29→16:36)
[2019-04-04 09:30] LABS: BG BASE EXCESS 6.8 mmol/L (-2.0-2.0); BG CARBOXYHEMOGLOBIN 0.6 % (0.5-1.5); BG DEOXYHEMOGLOBIN 11.5 % (0.0-5.0); BG FRACTION INSPIRED OXYGEN 21; BG HCO3 ACT 31.1 mmol/L (22.0-26.0); BG METHEMOGLOBIN 0.3 % (0.0-1.5); BG OXYGEN SATURATION 88.4 % (92.0-98.5); BG OXYHEMOGLOBIN 87.6 % (94.0-97.0); BG PCO2 43.3 mmHg (35.0-45.0); BG PH 7.474 (7.350-7.450); BG PO2 53.5 mmHg (75.0-100.0); BG SAMPLE SITE RIGHT BRACHIAL; BG TOTAL HEMOGLOBIN 11.7 g/dL (12.0-18.0); BG VENT MODE ROOM AIR
[2019-04-04] MEDS: METOPROLOL TARTRATE 50MG TABLET PO SCH ×2 (09:30→21:00)
[2019-04-04] MEDS: FUROSEMIDE 40MG TABLET PO SCH (09:30)
[2019-04-04] MEDS: PREDNISONE 10MG TABLET PO SCH ×2 (09:30→16:36)
[2019-04-04] MEDS: DOCUSATE SODIUM 100MG CAPSULE PO SCH ×2 (09:30→16:36)
[2019-04-04] MEDS: APIXABAN 5 MG TABLET PO SCH ×2 (09:30→21:19)
[2019-04-04] MEDS: LEVOFLOXACIN 250MG TABLET PO SCH (11:03)
[2019-04-04] MEDS ORDERED: FUROSEMIDE 40MG/4ML VIAL IVP SCH (13:30)
[2019-04-04 20:00] VITALS: BP 109/67
[2019-04-04] MEDS: POLYETHYLENE GLYCOL 3350 (17GM) 1 DOSE PACK PO SCH (21:00)
[2019-04-05] MEDS: NYSTATIN 100,000 UNITS/ML 5ML UDC SSW SCH ×4 (00:28→17:33)
[2019-04-05] MEDS: IPRATROPIUM/ALBUTEROL 0.5-3(2.5)MG/3ML NEB HHN SCH ×4 (03:28→20:49)
[2019-04-05 06:14] LABS: BASOPHILS % 0.5 % (0.0-2.0); EOSINOPHILS % 0.3 % (0.0-5.0); HEMATOCRIT. 32.9 % (36.0-48.0); HEMOGLOBIN. 10.3 g/dL (12.0-16.0); LYMPHOCYTES % 11.7 % (20.0-50.0); MEAN CORPUSCULAR HEMOGLOBIN 26.9 pg (28.0-32.0); MEAN CORPUSCULAR VOLUME 86.1 fL (81.0-99.0); MEAN PLATELET VOLUME 8.5 fl (7.4-10.4); MONOCYTES % 8.5 % (2.0-8.0); PLATELET 268 x1000/uL (130-400); RED BLOOD CELL COUNT 3.82 mill/uL (4.2-5.4); RED CELL DISTRIBUTION WIDTH 18.3 % (11.6-14.6)
[2019-04-05 06:33] LABS: PHOSPHORUS 3.7 mg/dL (2.5-4.9)
[2019-04-05] MEDS: BLOOD SUGAR DIAGNOSTIC STRIP TEST SCH ×4 (06:39→21:20)
[2019-04-05 08:14] VITALS: BP 116/62
[2019-04-05] MEDS: INSULIN LISPRO 100 UNITS/ML SUBCUT SCH ×4 (09:00→21:27)
[2019-04-05] MEDS: FUROSEMIDE 40MG TABLET PO SCH (09:18)
[2019-04-05] MEDS: ALLOPURINOL 100 MG TABLET PO SCH ×2 (09:18→17:33)
[2019-04-05] MEDS: FAMOTIDINE 20MG TABLET PO SCH (09:18)
[2019-04-05] MEDS: METFORMIN HCL 500MG TABLET PO SCH ×2 (09:19→17:33)
[2019-04-05] MEDS: METOPROLOL TARTRATE 50MG TABLET PO SCH ×2 (09:19→21:20)
[2019-04-05] MEDS: APIXABAN 5 MG TABLET PO SCH ×2 (09:20→21:19)
[2019-04-05] MEDS: PREDNISONE 10MG TABLET PO SCH ×2 (09:20→17:33)
[2019-04-05] MEDS: DOCUSATE SODIUM 100MG CAPSULE PO SCH ×2 (09:20→17:33)
[2019-04-05] MEDS: LEVOFLOXACIN 250MG TABLET PO SCH (11:06)
[2019-04-05] MEDS: ACETAZOLAMIDE 250MG TABLET PO SCH ×2 (16:13→21:19)
[2019-04-05 20:00] VITALS: BP 166/64
[2019-04-05] MEDS: POLYETHYLENE GLYCOL 3350 (17GM) 1 DOSE PACK PO SCH (21:00)
[2019-04-05] MEDS: MAGNESIUM/ALUMINUM HYDROXIDE/SIMETHICONE 30ML UDC PO PRN (21:31)
[2019-04-06] MEDS: NYSTATIN 100,000 UNITS/ML 5ML UDC SSW SCH ×5 (00:02→23:37)
[2019-04-06] MEDS: MAGNESIUM/ALUMINUM HYDROXIDE/SIMETHICONE 30ML UDC PO PRN (05:22)
[2019-04-06] MEDS: ACETAZOLAMIDE 250MG TABLET PO SCH (05:22)
[2019-04-06 06:37] LABS: BASOPHILS % 0.3 % (0.0-2.0); EOSINOPHILS % 0.9 % (0.0-5.0); HEMATOCRIT. 34.1 % (36.0-48.0); HEMOGLOBIN. 10.7 g/dL (12.0-16.0); LYMPHOCYTES % 10.7 % (20.0-50.0); MEAN CORPUSCULAR HEMOGLOBIN 27.2 pg (28.0-32.0); MEAN CORPUSCULAR VOLUME 86.2 fL (81.0-99.0); MEAN PLATELET VOLUME 8.4 fl (7.4-10.4); MONOCYTES % 8.3 % (2.0-8.0); NEUTROPHILS % 79.8 % (40.0-76.0); PLATELET 269 x1000/uL (130-400); RED BLOOD CELL COUNT 3.95 mill/uL (4.2-5.4); RED CELL DISTRIBUTION WIDTH 18.6 % (11.6-14.6)
[2019-04-06] MEDS: BLOOD SUGAR DIAGNOSTIC STRIP TEST SCH ×4 (06:47→21:00)
[2019-04-06] MEDS: INSULIN LISPRO 100 UNITS/ML SUBCUT SCH ×4 (06:50→21:00)
[2019-04-06] MEDS: IPRATROPIUM/ALBUTEROL 0.5-3(2.5)MG/3ML NEB HHN SCH ×4 (07:45→19:57)
[2019-04-06 07:53] LABS: PHOSPHORUS 3.7 mg/dL (2.5-4.9)
[2019-04-06 08:02] VITALS: BP 123/75
[2019-04-06] MEDS: APIXABAN 5 MG TABLET PO SCH ×2 (08:40→22:44)
[2019-04-06] MEDS: FUROSEMIDE 40MG TABLET PO SCH (08:40)
[2019-04-06] MEDS: FAMOTIDINE 20MG TABLET PO SCH (08:40)
[2019-04-06] MEDS: PREDNISONE 10MG TABLET PO SCH ×2 (08:40→16:28)
[2019-04-06] MEDS: METFORMIN HCL 500MG TABLET PO SCH ×2 (08:40→16:28)
[2019-04-06] MEDS: ALLOPURINOL 100 MG TABLET PO SCH ×2 (08:40→16:27)
[2019-04-06] MEDS: DOCUSATE SODIUM 100MG CAPSULE PO SCH ×2 (08:40→16:28)
[2019-04-06] MEDS: METOPROLOL TARTRATE 50MG TABLET PO SCH ×3 (08:48→22:44)
[2019-04-06] MEDS ORDERED: POTASSIUM CHLORIDE 20MEQ TABLET SR PO SCH (10:15)
[2019-04-06] MEDS: LEVOFLOXACIN 250MG TABLET PO SCH (10:22)
[2019-04-06 20:00] VITALS: BP 152/83
[2019-04-06] MEDS: POLYETHYLENE GLYCOL 3350 (17GM) 1 DOSE PACK PO SCH (22:44)
[2019-04-07] MEDS: IPRATROPIUM/ALBUTEROL 0.5-3(2.5)MG/3ML NEB HHN SCH ×4 (00:54→20:11)
[2019-04-07] MEDS: NYSTATIN 100,000 UNITS/ML 5ML UDC SSW SCH ×2 (06:06→12:00)
[2019-04-07 06:37] LABS: BASOPHILS % 0.4 % (0.0-2.0); EOSINOPHILS % 0.3 % (0.0-5.0); HEMATOCRIT. 34.3 % (36.0-48.0); HEMOGLOBIN. 10.8 g/dL (12.0-16.0); LYMPHOCYTES % 8.2 % (20.0-50.0); MEAN CORPUSCULAR HEMOGLOBIN 27.5 pg (28.0-32.0); MEAN CORPUSCULAR VOLUME 86.8 fL (81.0-99.0); MEAN PLATELET VOLUME 8.6 fl (7.4-10.4); MONOCYTES % 6.2 % (2.0-8.0); NEUTROPHILS % 84.9 % (40.0-76.0); PLATELET 256 x1000/uL (130-400); RED BLOOD CELL COUNT 3.95 mill/uL (4.2-5.4)
[2019-04-07] MEDS: INSULIN LISPRO 100 UNITS/ML SUBCUT SCH ×4 (06:38→21:51)
[2019-04-07] MEDS: BLOOD SUGAR DIAGNOSTIC STRIP TEST SCH ×4 (06:38→21:52)
[2019-04-07 08:35] VITALS: BP 105/50
[2019-04-07] MEDS: METOPROLOL TARTRATE 50MG TABLET PO SCH ×2 (09:00→21:00)
[2019-04-07] MEDS: ALLOPURINOL 100 MG TABLET PO SCH ×2 (09:10→17:26)
[2019-04-07] MEDS: DOCUSATE SODIUM 100MG CAPSULE PO SCH ×2 (09:10→17:26)
[2019-04-07] MEDS: APIXABAN 5 MG TABLET PO SCH ×2 (09:10→21:47)
[2019-04-07] MEDS: FUROSEMIDE 40MG TABLET PO SCH (09:10)
[2019-04-07] MEDS: PREDNISONE 10MG TABLET PO SCH ×2 (09:11→17:25)
[2019-04-07] MEDS: FAMOTIDINE 20MG TABLET PO SCH (09:11)
[2019-04-07] MEDS: METFORMIN HCL 500MG TABLET PO SCH ×2 (09:11→17:47)
[2019-04-07 20:00] VITALS: BP 111/71
[2019-04-07] MEDS: POLYETHYLENE GLYCOL 3350 (17GM) 1 DOSE PACK PO SCH (21:47)
[2019-04-07] MEDS: SILDENAFIL CITRATE 20MG TABLET PO SCH (22:00)
[2019-04-08] MEDS ORDERED: NA PHOS,M-B/NA PHOS,DI-BA ENEMA 118ML PR NR (02:00)
[2019-04-08] MEDS: IPRATROPIUM/ALBUTEROL 0.5-3(2.5)MG/3ML NEB HHN SCH ×3 (02:03→14:10)
[2019-04-08] MEDS: BLOOD SUGAR DIAGNOSTIC STRIP TEST SCH ×3 (06:10→16:58)
[2019-04-08] MEDS: SILDENAFIL CITRATE 20MG TABLET PO SCH ×2 (06:18→13:28)
[2019-04-08 06:57] LABS: BASOPHILS % 0.8 % (0.0-2.0); EOSINOPHILS % 0.5 % (0.0-5.0); HEMATOCRIT. 34.4 % (36.0-48.0); HEMOGLOBIN. 10.6 g/dL (12.0-16.0); LYMPHOCYTES % 9.5 % (20.0-50.0); MEAN CORPUSCULAR HEMOGLOBIN 26.8 pg (28.0-32.0); MEAN CORPUSCULAR VOLUME 86.9 fL (81.0-99.0); MEAN PLATELET VOLUME 8.4 fl (7.4-10.4); NEUTROPHILS % 82.2 % (40.0-76.0); PLATELET 212 x1000/uL (130-400); RED BLOOD CELL COUNT 3.96 mill/uL (4.2-5.4); RED CELL DISTRIBUTION WIDTH 18.8 % (11.6-14.6)
[2019-04-08 08:05] VITALS: BP 109/56
[2019-04-08] MEDS: INSULIN LISPRO 100 UNITS/ML SUBCUT SCH ×3 (09:00→16:58)
[2019-04-08] MEDS: APIXABAN 5 MG TABLET PO SCH (09:23)
[2019-04-08] MEDS: DOCUSATE SODIUM 100MG CAPSULE PO SCH ×2 (09:23→16:47)
[2019-04-08] MEDS: METFORMIN HCL 500MG TABLET PO SCH ×2 (09:23→16:47)
[2019-04-08] MEDS: PREDNISONE 10MG TABLET PO SCH ×2 (09:23→16:47)
[2019-04-08] MEDS: FAMOTIDINE 20MG TABLET PO SCH (09:23)
[2019-04-08] MEDS: METOPROLOL TARTRATE 50MG TABLET PO SCH (09:23)
[2019-04-08] MEDS: ALLOPURINOL 100 MG TABLET PO SCH ×2 (09:23→16:47)
[2019-04-08] MEDS: FUROSEMIDE 40MG TABLET PO SCH (09:23)
[2019-04-08] MEDS ORDERED: POTASSIUM CHLORIDE 10MEQ TABLET SR PO SCH (09:45)
[2019-04-08] MEDS: SODIUM CHLORIDE 1000MG TABLET PO SCH ×2 (10:51→16:47)
[2019-04-08 14:02] VITALS: BP 110/70
== END 2019-04-08 18:15 | disposition home health service (06) | DRG 291 ==
PROVIDERS: ADMIT Physical Medicine & Rehabilitation Spinal Cord Injury Medicine; ATTEND Internal Medicine Rheumatology
DX: I13.0 Hypertensive heart and chronic kidney disease with heart failure and stage 1 through stage 4 chronic kidney disease, or unspecified chronic kidney disease (principal); J18.9 Pneumonia, unspecified organism; I50.33 Acute on chronic diastolic (congestive) heart failure; J96.21 Acute and chronic respiratory failure with hypoxia; I48.92 Unspecified atrial flutter; N17.9 Acute kidney failure, unspecified; E22.2 Syndrome of inappropriate secretion of antidiuretic hormone; E46 Unspecified protein-calorie malnutrition; B37.0 Candidal stomatitis; D68.59 Other primary thrombophilia; E87.3 Alkalosis; I47.1 Supraventricular tachycardia; N39.0 Urinary tract infection, site not specified; J98.11 Atelectasis; M06.9 Rheumatoid arthritis, unspecified; I48.0 Paroxysmal atrial fibrillation; E87.5 Hyperkalemia; N18.3 Chronic kidney disease, stage 3 (moderate); D50.9 Iron deficiency anemia, unspecified; E11.22 Type 2 diabetes mellitus with diabetic chronic kidney disease; E11.51 Type 2 diabetes mellitus with diabetic peripheral angiopathy without gangrene; B96.89 Other specified bacterial agents as the cause of diseases classified elsewhere; E78.00 Pure hypercholesterolemia, unspecified; E78.5 Hyperlipidemia, unspecified; I27.22 Pulmonary hypertension due to left heart disease; I48.2 Chronic atrial fibrillation; I89.0 Lymphedema, not elsewhere classified; K59.00 Constipation, unspecified; I65.29 Occlusion and stenosis of unspecified carotid artery; Z96.653 Presence of artificial knee joint, bilateral; K29.70 Gastritis, unspecified, without bleeding; E11.40 Type 2 diabetes mellitus with diabetic neuropathy, unspecified; I70.209 Unspecified atherosclerosis of native arteries of extremities, unspecified extremity; Z79.01 Long term (current) use of anticoagulants; Z82.3 Family history of stroke; Z82.49 Family history of ischemic heart disease and other diseases of the circulatory system; Z87.01 Personal history of pneumonia (recurrent); Z87.440 Personal history of urinary (tract) infections; Z98.41 Cataract extraction status, right eye; Z79.899 Other long term (current) drug therapy; Z68.29 Body mass index [BMI] 29.0-29.9, adult
CPT/HCPCS: 36415; 36600; 71045; 80048; 82085; 82306; 82375; 82533; 82550; 82570; 82607; 82728; 82746; 82805; 82962; 83540; 83550; 83735; 83930; 83935; 84100; 84134; 84300; 84439; 84443; 85379; 87077; 87186; 92523; 92610; 93005; 93308; 93923; 93970; 94640; 97110; 97116; 97150; 97163; 97166; 97530; 97535; C1893; G0515; J1815; J1940; J7512; J7620; Q0162

== ENCOUNTER 2019-12-25 13:51 | Inpatient (IN) | payer MEDICARE, MEDICAID ==
[~2019-12-25] VITALS: Ht 157.5 cm; Wt 74.4 kg
[~2019-12-25 13:51] MED LIST changes: -ATOR10TA69 PO; -NAPR-679 PO; +OMEP40CA12 PO; -OMEP40CA34 PO
[2019-12-25 17:13] LABS: BASOPHILS % 0.7 % (0.0-2.0); EOSINOPHILS % 2.9 % (0.0-5.0); HEMATOCRIT. 40.4 % (36.0-48.0); HEMOGLOBIN. 12.8 g/dL (12.0-16.0); LYMPHOCYTES % 24.7 % (20.0-50.0); MEAN CORPUSCULAR HEMOGLOBIN 28.7 pg (28.0-32.0); MEAN CORPUSCULAR VOLUME 90.7 fL (81.0-99.0); NEUTROPHILS % 57.7 % (40.0-76.0); PLATELET 174 x1000/uL (130-400); RED BLOOD CELL COUNT 4.45 mill/uL (4.2-5.4); RED CELL DISTRIBUTION WIDTH 21.3 % (11.6-14.6)
[2019-12-25 17:16] LABS: CHLORIDE 103 mEq/L (98-107)
[2019-12-25] MEDS ORDERED: ASPIRIN 81MG TABLET PO ONE (19:30)
[2019-12-26] MEDS: FUROSEMIDE 40MG/4ML VIAL IVP SCH ×3 (01:56→20:56)
[2019-12-26 12:00] VITALS: BP_SYST 158; BP_SYST 164; BP_DIAS 79; BP_DIAS 80
[2019-12-26 12:01] VITALS: BP 164/79
[2019-12-26] MEDS: SILDENAFIL CITRATE 20MG TABLET PO SCH ×2 (14:00→21:54)
[2019-12-26] MEDS ORDERED: FUROSEMIDE 40MG/4ML VIAL IVP SCH (14:00)
[2019-12-26 16:00] VITALS: BP 138/69
[2019-12-26] MEDS ORDERED: BUMETANIDE 1MG TABLET PO SCH (17:00)
[2019-12-26] MEDS ORDERED: POTASSIUM CHLORIDE 10MEQ TABLET SR PO SCH (17:00)
[2019-12-26 17:23] LABS: BASOPHILS % 1.7 % (0.0-2.0); EOSINOPHILS % 4.2 % (0.0-5.0); HEMATOCRIT. 45.6 % (36.0-48.0); HEMOGLOBIN. 14.5 g/dL (12.0-16.0); LYMPHOCYTES % 25.2 % (20.0-50.0); MEAN CORPUSCULAR HEMOGLOBIN 28.9 pg (28.0-32.0); MEAN CORPUSCULAR VOLUME 91.1 fL (81.0-99.0); MEAN PLATELET VOLUME 7.9 fl (7.4-10.4); MONOCYTES % 9.5 % (2.0-8.0); NEUTROPHILS % 59.4 % (40.0-76.0); PLATELET 193 x1000/uL (130-400); RED BLOOD CELL COUNT 5.01 mill/uL (4.2-5.4); RED CELL DISTRIBUTION WIDTH 22.1 % (11.6-14.6)
[2019-12-26] MEDS: HYDROXYCHLOROQUINE SULFATE 200MG TABLET PO SCH (17:41)
[2019-12-26] MEDS: APIXABAN 2.5 MG TABLET PO SCH (17:42)
[2019-12-26 18:10] LABS: PHOSPHORUS 3.2 mg/dL (2.5-4.9)
[2019-12-26 20:00] VITALS: BP 137/68
[2019-12-26 20:42] LABS: PLATELET ESTIMATE NORMAL
[2019-12-26] MEDS: METOPROLOL TARTRATE 100MG TABLET PO SCH (21:00)
[2019-12-26] MEDS: ATORVASTATIN CALCIUM 10MG TABLET PO SCH (21:53)
[2019-12-26] MEDS: FAMOTIDINE 20MG TABLET PO SCH (21:53)
[2019-12-26] MEDS: ENALAPRIL 5MG TABLET PO SCH (21:54)
[2019-12-27] VITALS (8 sets, daily range): BP systolic 92–126; BP diastolic 41–56
[2019-12-27] MEDS: SILDENAFIL CITRATE 20MG TABLET PO SCH ×3 (06:16→22:00)
[2019-12-27] MEDS: FUROSEMIDE 40MG/4ML VIAL IVP SCH ×2 (06:28→17:08)
[2019-12-27 07:25] LABS: T4 FREE 1.85 ng/dL (0.76-1.46)
[2019-12-27 07:27] LABS: BASOPHILS % 2.1 % (0.0-2.0); EOSINOPHILS % 3.4 % (0.0-5.0); HEMATOCRIT. 40.4 % (36.0-48.0); HEMOGLOBIN. 12.7 g/dL (12.0-16.0); LYMPHOCYTES % 20.1 % (20.0-50.0); MEAN CORPUSCULAR HEMOGLOBIN 28.7 pg (28.0-32.0); MEAN CORPUSCULAR VOLUME 90.7 fL (81.0-99.0); MEAN PLATELET VOLUME 8.3 fl (7.4-10.4); MONOCYTES % 10.7 % (2.0-8.0); NEUTROPHILS % 63.7 % (40.0-76.0); PLATELET 162 x1000/uL (130-400); RED BLOOD CELL COUNT 4.45 mill/uL (4.2-5.4); RED CELL DISTRIBUTION WIDTH 21.4 % (11.6-14.6)
[2019-12-27 07:48] LABS: CLARITY URINE CLEAR (CLEAR); COLOR URINE YELLOW (YELLOW); KETONES URINE NEGATIVE (NEGATIVE); LEUKOCYTE ESTERASE URINE TRACE (NEGATIVE); NITRITE URINE NEGATIVE (NEGATIVE); OCCULT BLOOD URINE 3+ (NEGATIVE); PROTEIN URINE NEGATIVE (NEGATIVE); SPECIFIC GRAVITY URINE 1.007 (1.005-1.030)
[2019-12-27] MEDS ORDERED: FOLIC ACID 1MG TABLET PO SCH (09:00)
[2019-12-27] MEDS: ENALAPRIL 5MG TABLET PO SCH (09:00)
[2019-12-27] MEDS ORDERED: DICLOFENAC SODIUM 75MG DR (EC) TABLET PO SCH (09:00)
[2019-12-27] MEDS ORDERED: SPIRONOLACTONE 25MG TABLET PO SCH (09:00)
[2019-12-27] MEDS: METOPROLOL TARTRATE 100MG TABLET PO SCH (09:00)
[2019-12-27] MEDS: HYDROXYCHLOROQUINE SULFATE 200MG TABLET PO SCH ×2 (09:59→16:50)
[2019-12-27] MEDS: APIXABAN 2.5 MG TABLET PO SCH ×2 (09:59→16:49)
[2019-12-27] MEDS: FOLIC ACID 1MG TABLET PO SCH (09:59)
[2019-12-27] MEDS: ALLOPURINOL 100 MG TABLET PO SCH (10:00)
[2019-12-27] MEDS ORDERED: ALBUMIN HUMAN 12.5GM/50ML (25%) IV NR (17:30)
[2019-12-27] MEDS ORDERED: METOPROLOL TARTRATE 50MG TABLET PO SCH (21:00)
[2019-12-27] MEDS ORDERED: ENALAPRIL 5MG TABLET PO SCH (21:00)
[2019-12-27] MEDS: ATORVASTATIN CALCIUM 10MG TABLET PO SCH (22:42)
[2019-12-27] MEDS: FAMOTIDINE 20MG TABLET PO SCH (22:42)
[2019-12-28] VITALS (7 sets, daily range): BP systolic 96–121; BP diastolic 42–61
[2019-12-28] MEDS: FUROSEMIDE 40MG/4ML VIAL IVP SCH ×2 (06:00→17:17)
[2019-12-28] MEDS: SILDENAFIL CITRATE 20MG TABLET PO SCH ×3 (06:00→22:00)
[2019-12-28 06:24] LABS: BASOPHILS % 1.2 % (0.0-2.0); EOSINOPHILS % 3.2 % (0.0-5.0); HEMATOCRIT. 34.6 % (36.0-48.0); HEMOGLOBIN. 11.1 g/dL (12.0-16.0); MEAN CORPUSCULAR HEMOGLOBIN 28.5 pg (28.0-32.0); MEAN PLATELET VOLUME 9.1 fl (7.4-10.4); NEUTROPHILS % 63.6 % (40.0-76.0); PLATELET 188 x1000/uL (130-400); RED BLOOD CELL COUNT 3.89 mill/uL (4.2-5.4)
[2019-12-28] MEDS: FOLIC ACID 1MG TABLET PO SCH (09:47)
[2019-12-28] MEDS: ALLOPURINOL 100 MG TABLET PO SCH (09:47)
[2019-12-28] MEDS: APIXABAN 2.5 MG TABLET PO SCH ×2 (09:47→17:17)
[2019-12-28] MEDS: SODIUM CHLORIDE 0.9% 1,000 ML IV SCH (09:47)
[2019-12-28] MEDS: HYDROXYCHLOROQUINE SULFATE 200MG TABLET PO SCH ×2 (09:47→17:17)
[2019-12-28 11:36] LABS: CREATINE KINASE 60 IU/L (26-192)
[2019-12-28] MEDS: FAMOTIDINE 20MG TABLET PO SCH (20:41)
[2019-12-28] MEDS: ATORVASTATIN CALCIUM 10MG TABLET PO SCH (20:41)
[2019-12-29] VITALS: BP 136/61
[2019-12-29] MEDS: SODIUM CHLORIDE 0.9% 1,000 ML IV SCH ×2 (01:55→18:07)
[2019-12-29 04:00] VITALS: BP 116/53
[2019-12-29] MEDS: FUROSEMIDE 40MG/4ML VIAL IVP SCH ×2 (06:01→18:07)
[2019-12-29] MEDS: SILDENAFIL CITRATE 20MG TABLET PO SCH ×3 (06:10→21:46)
[2019-12-29 07:31] LABS: EOSINOPHILS % 4.8 % (0.0-5.0); HEMATOCRIT. 34.1 % (36.0-48.0); HEMOGLOBIN. 11.1 g/dL (12.0-16.0); LYMPHOCYTES % 24.8 % (20.0-50.0); MEAN CORPUSCULAR HEMOGLOBIN 28.8 pg (28.0-32.0); MEAN PLATELET VOLUME 9.1 fl (7.4-10.4); MONOCYTES % 14.4 % (2.0-8.0); PLATELET 191 x1000/uL (130-400); RED BLOOD CELL COUNT 3.83 mill/uL (4.2-5.4); RED CELL DISTRIBUTION WIDTH 21.3 % (11.6-14.6)
[2019-12-29 07:35] LABS: CHLORIDE 102 mEq/L (98-107)
[2019-12-29 08:00] VITALS: BP 100/49
[2019-12-29] MEDS: APIXABAN 2.5 MG TABLET PO SCH ×2 (10:04→18:07)
[2019-12-29] MEDS: HYDROXYCHLOROQUINE SULFATE 200MG TABLET PO SCH ×2 (10:04→18:07)
[2019-12-29] MEDS: FOLIC ACID 1MG TABLET PO SCH (10:04)
[2019-12-29] MEDS: ALLOPURINOL 100 MG TABLET PO SCH (10:04)
[2019-12-29 12:43] VITALS: BP 113/78
[2019-12-29 16:00] VITALS: BP_SYST 113; BP_SYST 120; BP_DIAS 52; BP_DIAS 53
[2019-12-29] MEDS ORDERED: BRIM10DR2 EACHEYE (16:39)
[2019-12-29] MEDS ORDERED: AMI2 MT (16:39)
[2019-12-29] MEDS ORDERED: METO-396 MT (16:39)
[2019-12-29] MEDS ORDERED: METH2.5T MT (16:40)
[2019-12-29 20:00] VITALS: BP 135/66
[2019-12-29] MEDS: ATORVASTATIN CALCIUM 10MG TABLET PO SCH (21:46)
[2019-12-29] MEDS: FAMOTIDINE 20MG TABLET PO SCH (21:46)
[2019-12-30] VITALS: BP 112/64
[2019-12-30 04:00] VITALS: BP 105/40
[2019-12-30] MEDS: FUROSEMIDE 40MG/4ML VIAL IVP SCH (06:07)
[2019-12-30] MEDS: SILDENAFIL CITRATE 20MG TABLET PO SCH ×3 (06:08→21:36)
[2019-12-30 06:56] LABS: HEMATOCRIT. 34.8 % (36.0-48.0); HEMOGLOBIN. 11.1 g/dL (12.0-16.0); MEAN CORPUSCULAR HEMOGLOBIN 28.6 pg (28.0-32.0); MEAN CORPUSCULAR VOLUME 89.3 fL (81.0-99.0); MEAN PLATELET VOLUME 9.8 fl (7.4-10.4); PLATELET 186 x1000/uL (130-400); RED BLOOD CELL COUNT 3.89 mill/uL (4.2-5.4); RED CELL DISTRIBUTION WIDTH 21.1 % (11.6-14.6)
[2019-12-30 08:00] VITALS: BP 138/58
[2019-12-30] MEDS: APIXABAN 2.5 MG TABLET PO SCH ×2 (08:46→18:12)
[2019-12-30] MEDS: HYDROXYCHLOROQUINE SULFATE 200MG TABLET PO SCH ×2 (08:47→18:12)
[2019-12-30] MEDS: FOLIC ACID 1MG TABLET PO SCH (08:47)
[2019-12-30] MEDS: ALLOPURINOL 100 MG TABLET PO SCH (08:47)
[2019-12-30] MEDS ORDERED: METHOTREXATE SODIUM 2 . 5MG TABLET PO SCH (09:00)
[2019-12-30 12:00] VITALS: BP 137/68
[2019-12-30 13:31] LABS: PLATELET ESTIMATE NORMAL
[2019-12-30 16:00] VITALS: BP 132/64
[2019-12-30 20:00] VITALS: BP 115/64
[2019-12-30] MEDS: ATORVASTATIN CALCIUM 10MG TABLET PO SCH (21:37)
[2019-12-30] MEDS: FAMOTIDINE 20MG TABLET PO SCH (21:37)
[2019-12-31] VITALS: BP 112/53
[2019-12-31] MEDS ORDERED: FUROSEMIDE 40MG/4ML VIAL IVP SCH (01:00)
[2019-12-31 03:20] LABS: CLARITY URINE CLOUDY (CLEAR); COLOR URINE RED (YELLOW); KETONES URINE NEGATIVE (NEGATIVE); LEUKOCYTE ESTERASE URINE 2+ (NEGATIVE); NITRITE URINE NEGATIVE (NEGATIVE); OCCULT BLOOD URINE 3+ (NEGATIVE); PH URINE 6.5 (4.5-8.0); PROTEIN URINE 1+ (NEGATIVE); SPECIFIC GRAVITY URINE 1.012 (1.005-1.030)
[2019-12-31 04:00] VITALS: BP 152/65
[2019-12-31 06:35] LABS: HEMATOCRIT. 39.8 % (36.0-48.0); HEMOGLOBIN. 12.6 g/dL (12.0-16.0); MEAN CORPUSCULAR HEMOGLOBIN 28.6 pg (28.0-32.0); MEAN CORPUSCULAR VOLUME 90.5 fL (81.0-99.0); MEAN PLATELET VOLUME 9.5 fl (7.4-10.4); PLATELET 235 x1000/uL (130-400); RED CELL DISTRIBUTION WIDTH 21.1 % (11.6-14.6)
[2019-12-31 06:39] LABS: CHLORIDE 98 mEq/L (98-107)
[2019-12-31] MEDS: SILDENAFIL CITRATE 20MG TABLET PO SCH ×2 (06:57→13:52)
[2019-12-31 08:00] VITALS: BP 144/61
[2019-12-31] MEDS: FOLIC ACID 1MG TABLET PO SCH (08:05)
[2019-12-31] MEDS: ALLOPURINOL 100 MG TABLET PO SCH (08:05)
[2019-12-31] MEDS: HYDROXYCHLOROQUINE SULFATE 200MG TABLET PO SCH ×2 (08:05→17:40)
[2019-12-31] MEDS: APIXABAN 2.5 MG TABLET PO SCH ×2 (08:05→17:40)
[2019-12-31 12:00] VITALS: BP 129/66
[2019-12-31 13:54] LABS: PLATELET ESTIMATE NORMAL
[2019-12-31] MEDS ORDERED: INFLUENZA VIRUS VACCINE(AFLURIA) 0.5ML SYR IM ONE (15:00)
[2019-12-31 16:00] VITALS: BP 122/72
[2019-12-31 16:13] VITALS: BP 122/72
== END 2019-12-31 19:28 | disposition home health service (06) | DRG 682 ==
LOC: ER 13:51 → 5WST 20:00 → ENRESERV 12-26 07:47 → ER 12-26 10:19
PROVIDERS: ADMIT Internal Medicine Rheumatology; ATTEND Internal Medicine Rheumatology
DX: N17.9 Acute kidney failure, unspecified (principal); I50.33 Acute on chronic diastolic (congestive) heart failure; I13.0 Hypertensive heart and chronic kidney disease with heart failure and stage 1 through stage 4 chronic kidney disease, or unspecified chronic kidney disease; E46 Unspecified protein-calorie malnutrition; E87.3 Alkalosis; I95.9 Hypotension, unspecified; E11.22 Type 2 diabetes mellitus with diabetic chronic kidney disease; I25.10 Atherosclerotic heart disease of native coronary artery without angina pectoris; M06.9 Rheumatoid arthritis, unspecified; Z96.659 Presence of unspecified artificial knee joint; E66.9 Obesity, unspecified; E78.00 Pure hypercholesterolemia, unspecified; E78.5 Hyperlipidemia, unspecified; K64.9 Unspecified hemorrhoids; M19.90 Unspecified osteoarthritis, unspecified site; G43.909 Migraine, unspecified, not intractable, without status migrainosus; N18.3 Chronic kidney disease, stage 3 (moderate); I48.0 Paroxysmal atrial fibrillation; I65.21 Occlusion and stenosis of right carotid artery; I27.21 Secondary pulmonary arterial hypertension; M65.9 Synovitis and tenosynovitis, unspecified; Z82.3 Family history of stroke; Z82.49 Family history of ischemic heart disease and other diseases of the circulatory system; Z68.30 Body mass index [BMI] 30.0-30.9, adult; Z79.899 Other long term (current) drug therapy; Z88.8 Allergy status to other drugs, medicaments and biological substances; R60.1 Generalized edema; S30.91XA Unspecified superficial injury of lower back and pelvis, initial encounter
CPT/HCPCS: 36415; 71045; 76770; 80048; 80053; 81003; 82550; 83880; 84100; 84134; 84439; 84484; 84550; 85025; 85651; 87077; 87186; 90686; 93005; 93306; 96374; 99285; J1940; J7030; P9047